=== PATIENT | female | born 1950 | race Caucasian/White ===

== ENCOUNTER → 2017-12-16 08:26 | Outpatient (CLI) | payer MEDICARE, MEDICAID | END | disposition home or self-care (01) | LOC: D.RT 11-11 08:00 → D.CT 11-11 09:00 → D.RT 11-13 09:00 → D.CT 11-13 10:00 → D.RT 12-11 13:00 → D.CT 12-11 14:00 → D.RT 08:26 | DX: R91.8 Other nonspecific abnormal finding of lung field (principal) ==

== ENCOUNTER 2018-01-27 13:13 | Emergency (ER) | payer MEDICARE, MEDICAID ==
[~2018-01-27] VITALS: Ht 165.1 cm; Wt 88.6 kg
[2018-01-27 13:15] VITALS: Ht 165.1 cm; Wt 88.6 kg
[2018-01-27 15:16] LABS: BASOPHILS 0.3 % (0-2); HEMATOCRIT 40.6 % (36.0-48.0); HEMOGLOBIN 13.3 g/dL (12-16); IMMATURE GRANULOCYTES 0.3 % (0-5); LYMPHOCYTES 27.6 % (15-50); MCH 29.3 pg (26.0-34.0); MCHC 32.8 g/dL (31.0-37.0); MCV 89.4 fL (80.0-100.0); MEAN PLATELET VOLUME 9.9 fL (7.4-10.4); MONOCYTES 8.5 % (2-11); NEUTROPHILS 60.3 % (40-80); PLATELET COUNT 182 10x3/uL (130-400); RBC 4.54 10x6/uL (4.00-5.40); RDW 14.5 % (11.5-14.5); WBC 7.9 10x3/uL (4.8-10.8)
[2018-01-27 15:23] LABS: APPEARANCE CLEAR (CLEAR); BILIRUBIN NEGATIVE (NEGATIVE); COLOR YELLOW (YELLOW); GLUCOSE NEGATIVE (NEGATIVE); KETONE NEGATIVE (NEGATIVE); NITRITE NEGATIVE (NEGATIVE); PROTEIN NEGATIVE (NEGATIVE); UROBILINOGEN NORMAL (NORMAL)
[2018-01-27 15:24] LABS: EPITHELIAL CELLS 0-5 /hpf (0-5); RED CELLS - URINE 0-5 /hpf (0-5)
[2018-01-27 15:25] LABS: BACTERIA FEW /hpf (NONE SEEN)
[2018-01-27 15:39] LABS: ALBUMIN 3.5 g/dL (3.4-5.0); ALKALINE PHOSPHATASE 126 U/L (46-116); ALT (SGPT) 28 U/L (10-68); BILIRUBIN - TOTAL 0.43 mg/dL (0.2-1.3); CALC OSMOLALITY 278 mosm/kg (275-300); CARBON DIOXIDE 26.9 mmol/L (21.0-32.0); CHLORIDE - SERUM 105 mmol/L (98-107); GLUCOSE 103 mg/dL (74-106); PROTEIN - SERUM 7.4 g/dL (6.4-8.2); SODIUM 139 mmol/L (136-145); UREA NITROGEN 14 mg/dL (7-18); eGFR NON AFRICAN AMERICAN 59 mL/min (90-120)
[2018-01-27 15:48] LABS: CREATINE KINASE 64 UL (21-215)
[2018-01-27 15:49] LABS: TROPONIN-I < 0.017 ng/mL (0.000-0.060)
[2018-01-27] MEDS ORDERED: MACROBID100 MG PO (19:11)
[2018-01-27] MEDS ORDERED: ANTIVERT12.5 MG PO (19:11)
[2018-01-27 20:57] VITALS: BP 141/83
== END 2018-01-27 19:57 | disposition home or self-care (01) ==
LOC: D.ER 13:13
PROVIDERS: Family Medicine
DX: R42 Dizziness and giddiness (principal); N39.0 Urinary tract infection, site not specified; R51 Headache; Z86.73 Personal history of transient ischemic attack (TIA), and cerebral infarction without residual deficits; E07.9 Disorder of thyroid, unspecified; E11.9 Type 2 diabetes mellitus without complications; I10 Essential (primary) hypertension; Z85.42 Personal history of malignant neoplasm of other parts of uterus

== ENCOUNTER → 2018-06-23 07:54 | Outpatient (CLI) | payer MEDICARE ==
[2018-01-27 13:15] VITALS: BMI 32.5
[~2018-06-23 07:54] MED LIST: ANTIVERT12.5 MG PO; MACROBID100 MG PO
== END | disposition home or self-care (01) ==
LOC: D.MAMMO 07:54
DX: Z12.31 Encounter for screening mammogram for malignant neoplasm of breast (principal)

== ENCOUNTER → 2018-06-25 11:02 | Outpatient (CLI) | payer MEDICARE ==
[2018-01-27 13:15] VITALS: BMI 32.5
== END | disposition home or self-care (01) ==
LOC: D.LABREF 11:02
DX: J44.9 Chronic obstructive pulmonary disease, unspecified (principal)

== ENCOUNTER 2018-12-31 11:37 | Outpatient (CLI) | payer MEDICARE ==
[~2018-12-31] VITALS: Ht 165.1 cm; Wt 94.1 kg
--- NOTE | ~2018-12-31 | OP ---
PATIENT NAME: NATALIE VASQUEZ MEDICAL RECORD: [id number] :52 LOCATION:D.CAT ADMISSION DATE: SURGEON: RENETTA MCLEAN MD DATE OF OPERATION: 12/31/2018 PROCEDURE: Left heart catheterization, selective coronary angiography, right femoral artery approach. CATHETERS: A 5-Niuean sheath, 5/4 left and right Tee, 5/4 pig. The procedure was well tolerated. The patient returned to the lombardo, sheath removed. ExoSeal device placed. FINDINGS: Left ventriculography in 30-degree BRADEN view: Normal wall motion and normal systolic function. CORONARY ANATOMY: LEFT MAIN: Left main is free of disease. LAD: Free of disease in the diagonal system. CIRCUMFLEX: Free of disease in the marginal system. RIGHT CORONARY ARTERY: Dominant artery, gives rise to PDA, free of disease. IMPRESSION: Normal LV systolic function. Normal coronary anatomy. 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
--- NOTE | ~2018-12-31 | HEMODYNAMI ---
PATIENT:NATALIE VASQUEZ MEDICAL RECORD: [id number] : 52 LOCATION:DREA ADMISSION DATE: 12/31/18 Generatedon:12/31/201813:31 Patient name: NATALIE VASQUEZ Patient #: [id number] SSN: : 1950 Date of study: 12/31/2018 Page: Of Hemodynamic Procedure Report Patient Data Patient Demographics Procedure consent was obtained First Name: NATALIE Gender: Female Last Name: PEDRO : 1950 [facility] Initial: ROSALES Age: 68 year(s) Patient #: [id number] Race: Unknown Additional ID: [id number] Contact details [address]: [address] [place] [address] [place] [place] [facility] Zip code: [address] Past Medical History Allergies Allergen Reaction Date Comments Reported Other allergy 12/31/2018 IODINE, PCN, SULFA Admission Admission Data Admission Date: 12/31/2018 Admission Time: 11:37 Height (in.): 65.5 BSA: 2.01 (m2) Height (cm.): 166.37 BMI: 33.59 (kg/m2) Weight (lbs.): 205 Weight (kg.): 92.99 Lab Results Lab Result Date: 12/31/2018 Lab Result Time: 0:00 Biochemistry Name Units Result Min Max BUN mg/dl 19 --(----)*- 7 18 Creatinine mg/dl 1.2 --(---*)-- 0.6 1.3 CBC Name Units Result Min Max Hematocrit % 41.1 -*(----)-- 42 54 Hemoglobin g/dl 14.1 --(*---)-- 13.5 17.5 Procedure Procedure Types Cath Procedure Diagnostic Procedure [facility] w/Coronaries Procedure Description Procedure Date Procedure Date: 12/31/2018 Procedure Start Time: 13:18 Procedure End Time: 13:25 Procedure Staff Name Function Tom Donato RN Field 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 Machine Operator Jaleel Barksdale MD Performing Physician Jaclyn Marino RT Scrub Connie Suárez RN Nurse Lindsey Silverio RT Monitor Procedure Data Cath Procedure Fluoroscopy Diagnostic fluoroscopy Total fluoroscopy Time: 0.8 time: 0.8 min min Diagnostic fluoroscopy Total fluoroscopy dose: 435 dose: 435 mGy mGy Contrast Material Contrast Material Type Amount (ml) Isovue 300 43 Entry Location Entry Primary Successful Side Size Upsize Upsize Entry Closure Succes sful Closure Location (Fr) 1 (Fr) 2 (Fr) Remarks Device Remarks Femoral Right 5 Fr Exoseal artery Estimated blood loss: 5 ml Diagnostic catheters Device Type Used For End Catheter Placement MULTIPACK JL 4.0 5Fr Left Coronary catheter Angiography MULTIPACK 3DRC 5Fr Right Coronary catheter Angiography MULTIPACK Pigtail 5 Fr LV Angiography catheter Procedure Complications No complications Procedure Medications Medication Administration Route Dosage 0.9% NaCl I.V. 100 ml/hr Oxygen etCO2 Nasal cannula 2 l/min Lidocaine 2% added to field 20 Heparin Flush Bag added to field 2 bags (1000units/500ml NS) Versed I.V. 2 mg Fentanyl I.V. 50 mcg Versed I.V. 2 mg Fentanyl I.V. 50 mcg Hemodynamics Rest BSA: 2.01 (m2) HGB: 14.1 (g/dl) O2 Consumption: Estimated: 193.57 (ml/min) O2 Co nsumption indexed: Estimated:96.3 (ml/min/m) Heart Rate: 79 (bpm) Pressure Samples Time Site Value (mmHg) Purpose Heart Use Rate(bpm) 13:22 LV 140/8,14 Snapshot 76 13:23 LV 143/18,24 Pullback 76 13:23 AO 139/71(97) Pullback 76 Gradients Valve Time Site 1 Site 2 Mean SEP/DFP Peak To Heart Use (mmHg) (sec/min) Peak Rate (mmHg) (bpm) Aortic 13:23 LV AO 3 21 4 76 143/18,24 139/71(97) Calculations Valve P-P Mean Valve Index Valve Source Name Gradient Area Flow (cm2) Aortic 4 3 4 3 Snapshots Pre Cath Intra NCS Post Cath Vital Signs Time Heart Resp SPO2 etCO2 NIBP (mmHg) Rhythm Pain Sedation Rate (ipm) (%) (mmHg) Status Level (bpm) 12:57:51 78 17 96 23.2 145/73(105) NSR 0 (11) 10(A) , No pain 13:02:21 73 11 97 27.7 133/70(102) NSR 0 (11) 10(A) , No pain 13:06:49 80 17 98 35.2 139/64(101) NSR 0 (11) 10(A) , No pain 13:11:14 75 10 97 21.7 146/69(97) NSR 0 (11) 10(A) , No pain 13:15:38 71 10 97 24.7 130/68(110) NSR 0 (11) 10(A) , No pain 13:20:02 78 16 97 29.2 143/73(101) NSR 0 (11) 10(A) , No pain 13:24:24 82 14 97 20.9 140/75(103) NSR 0 (11) 10(A) , No pain Medications Time Medication Route Dose Verified Delivered Reason Notes Eff ectiveness by by 12:56:40 0.9% NaCl I.V. 100 Jaleel Connie used for ml/hr Apolonia Jose Armando procedure MD SCHMIDT 12:56:48 Oxygen etCO2 2 Jaleel Connie used for Nasal l/min Apolonia Jose Armando procedure cannula MD SCHMIDT 12:56:54 Lidocaine 2% added 20ml Jaleel Jaleel for local to vial [facility] John anesthetic field MD PAULINO 12:56:59 Heparin Flush added 2 Jaleel Jaleel used for Bag to bags [facility] procedure (1000units/500ml field MD PAULINO NS) 13:17:54 Versed I.V. 2 mg Jaleel Connie for Apolonia Jose Armando sedation MD SCHMIDT 13:18:01 Fentanyl I.V. 50 Jaleel Connie for mcg ApoloniaRoyer Suárez sedation MD SCHMIDT 13:20:49 Versed I.V. 2 mg Jaleel Connie for Apolonia Jose Armando sedation MD SCHMIDT 13:20:53 Fentanyl I.V. 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 12:40:32 Diagnostic Cath status Elective 12:40:34 Time tracking: Regular hours (M-F 7:00 - 5:00) 12:40:34 Tom Donato RN sent for patient. Start room use. 12:40:38 Plan of Care:Hemodynamics will remain stable., Cardiac rhythm will remain stable., Comfort level will be maintained., Respiratory function will remain adequate., Patient/ family verbilizes understanding of procedure., Procedure tolerated without complication., Recovers from procedure without complications.. 12:42:07 H&P Date Dictated: 12/18/2018 Within 30 days and on chart., H&P Addendum completed by physician on day of procedure. (MUST COMPLETE FOR ALL OUTPATIENTS). 12:42:24 Patient allergic to Other allergyIODINE, PCN, SULFA 12:42:33 Patient Height : 65.5 inches 12:42:37 Patient Weight : 205 lbs 12:46:21 Lab Result : Hemoglobin 14.1 g/dl 12:46:21 Lab Result : Hematocrit 41.1 % 12:46:21 Lab Result : BUN 19 mg/dl 12:46:21 Lab Result : Creatinine 1.2 mg/dl 12:49:11 ----Pre-sedation anethsthesia assessment.---- 12:49:19 Previous problem with sedation/anesthesia? No ? 12:49:23 Snore? Yes 12:49:25 Sleep apnea? Yes 12:49:27 Deviated septum? No 12:49:30 Opens mouth fully? Yes 12:49:35 Sticks out tongue? Yes 12:49:39 Airway obstruction? No ? 12:49:47 Dentures? No ? 12:50:06 Patient diabetic? Yes. 12:50:40 If diabetic: On Metformin? No 12:50:48 Patient not . Patient is over age 55. 12:56:27 Vital chart was started 12:56:40 0.9% NaCl 100 ml/hr I.V. was administered by Connie Suárez RN; used for procedure; 12:56:48 Oxygen 2 l/min etCO2 Nasal cannula was administered by Connie Suárez RN; used for procedure; 12:56:54 Lidocaine 2% 20ml vial added to field was administered by Jaleel Barksdale MD; for local anesthetic; 12:56:59 Heparin Flush Bag (1000units/500ml NS) 2 bags added to field was administered by Jaleel Barksdale MD; used for procedure; 12:57:29 Patient received from Pre/Post Procedure Room to [facility] 1 Alert and oriented. Tansferred to table in Supine position. 12:57:36 Warm blankets applied, and kari hugger turned on for patient comfort. 12:57:38 Correct patient and procedure confirmed by team. 12:57:39 ECG and BP/O2 sat monitors applied to patient. 12:57:51 Baseline sample Acquired. 12:59:24 Rhythm: sinus rhythm 12:59:26 Full Disclosure recording started 12:59:33 Pre-procedure instructions explained to patient. 12:59:34 Pre-op teaching completed and patient verbalized understanding. 12:59:35 Family in waiting room. 12:59:37 Patient NPO since Midnight. 12:59:43 Was the patient premedicated? Yes 12:59:56 Is patient on blood thinner?No 13:00:02 Pre procedure: right dorsailis pedis pulse 2+ Normal; easily identifiable; not easily obliterated 13:00:04 Pre procedure: left dorsailis pedis pulse 2+ Normal; easily identifiable; not easily obliterated 13:00:05 Patient pain scale 0/10 ?. 13:00:11 IV patent on arrival in left forearm with 0.9% NaCl at O. 13:00:15 Lab results completed and on chart. 13:00:19 Right groin area was prepped with chlora-prep and draped in sterile fashion 13:00:21 Sharps counted by scrub and verified by R.N. 13:00:21 Alarms reviewed by R. N. 13:17:26 Physician arrived 13:17:27 Final Timeout: patient, procedure, and site verified with staff and physician. All members of the team are in agreement. 13:17:27 --------ALL STOP TIME OUT------ 13:17:30 Right groin site verified by team. 13:17:33 Maximum allowable Isovue 300 dose 300ml. Physician notified. (300ml for normal creatinines. For patients with creatinine of 1.7 or higher multiply weight(kg) x 5 divided by creatinine.) 13:17:37 Fire Safety Assessment: A--An alcohol-based skin anteseptic being used preoperatively., C--Open oxygen or nitrous oxide is being used., D--An ESU, laser, or fiber-optic light is being used. 13:17:43 Sedation plan: IV Moderate Sedation Medication:Versed, Fentanyl 13:17:46 Use device set Femoral Dx 13:17:47 ACIST Syringe (01288) opened to sterile field. 13:17:48 Medline Cath Pack ([id number]) opened to sterile field. 13:17:48 Bag Decanter (2002) opened to sterile field. 13:17:49 DIAGNOSTIC WIRE .035 260cm J wire (329436) opened to sterile field. 13:17:50 ACIST Manifold (65536) opened to sterile field. 13:17:50 ACIST Hand Control (89792) opened to sterile field. 13:17:51 Tegaderm 4 x 4 (1626W) opened to sterile field. 13:17:51 DIAGNOSTIC Multipack 5Fr catheter set (BY5849) opened to sterile field. 13:17:52 SHEATH 5FR [place] (IUU676) opened to sterile field. 13:17:54 Versed 2 mg I.V. was administered by Connie Suárez RN; for sedation; 13:17:57 Procedure started. 13:18:01 Local anesthetic to right femoral artery with Lidocaine 2% by Jaleel Barksdale MD.INITIAL ACCESS ONLY 13:18:01 Fentanyl 50 mcg I.V. was administered by Connie Suárez RN; for sedation; 13:18:14 A 5 Fr sheath was inserted into the Right Femoral artery 13:19:08 A MULTIPACK JL 4.0 5Fr catheter was advanced over the wire and used for Left Coronary Angiography. 13:19:41 LCA angiography performed. 13:19:45 Injector settings: Ml/sec: 3, Volume: 6, 13:20:28 Catheter removed. 13:20:35 A MULTIPACK 3DRC 5Fr catheter was advanced over the wire and used for Right Coronary Angiography. 13:20:49 Versed 2 mg I.V. was administered by Connie Suárez RN; for sedation; 13:20:53 Fentanyl 50 mcg I.V. was administered by Connie Suárez RN; for sedation; 13:21:31 RCA angiography performed. 13:21:34 Injector settings: Ml/sec: 3, Volume: 6, 13:21:37 Catheter removed. 13:21:44 A MULTIPACK Pigtail 5 Fr catheter was advanced over the wire and used for LV Angiography. 13:22:47 LV hemodynamics recorded. 13:22:48 LV gram done using BRADEN 13:22:50 Injector settings: Ml/sec: 5, Volume: 15, 13:23:06 EF : 55 % 13:23:09 Catheter removed. 13:23:11 EXOSEAL 5Fr (EX500) opened to sterile field. 13:23:20 Sheath removed intact; hemostasis achieved with Exoseal to the Right Femoral artery. 13:23:22 Procedure ended.(Physican Out) 13:23:32 Fluoroscopy time 00.80 minutes. 13:23:36 Fluoroscopy dose: 435 mGy 13:23:36 Flurop Dose total: 435 13:23:40 Contrast amount:Isovue 300 43ml. 13:23:42 Sharps counted by scrub and verified by R.N. 13:23:43 Insertion/operative site no bleeding no hematoma. 13:23:56 Post-op/insertion site Right Femoral artery dressed using a 4 x 4 and Tegaderm. 13:23:59 Post procedure rhythm: unchanged. 13:24:02 Estimated blood loss: 5 ml 13:24:04 Post procedure instruction explained to patient.Patient verbalizes understanding. 13:24:06 Patient needs reinforcement of post procedure teaching. 13:24:13 Procedure and supply charges have been captured, reviewed, submitted and are correct. 13:24:18 Procedure Complication : No complications 13:25:03 Vital chart was stopped 13:25:04 See physician's report for complete and final results. 13:25:11 Report given to Pre/Post Procedure Room. 13:25:16 Patient transfered to Pre/Post Procedure Room with Stretcher. 13:25:18 Full Disclosure recording stopped 13:25:18 Procedure ended. 13:25:29 End room use (Document Last) Device Usage Item Name Manufacture Quantity Catalog Hospital Part Current Minimal L ot# / Number Charge Number Stock Stock Serial# Code ACIST Acist 1 66666 [id number] 703799 554686 20 Syringe Medical (04024) Systems Inc Bag Microtek 1 2001S [id number] 85915 486398 5 Decanter Medical Inc. () Medline Medline 1 [id number] 616147 11738 267410 5 Cath Pack ([id number]) DIAGNOSTIC St Ty 1 435447 576683 233290 138480 30 WIRE .035 260cm J wire (548275) ACIST Hand Acist 1 68514 327211 824840 641004 5 Control Medical (14213) Systems Inc ACIST Acist 1 23859 923174 257536 135934 5 Manifold Medical (78372) Systems Inc DIAGNOSTIC Cardinal 1 YC1305 010115 55143 041214 30 Multipack Health 5Fr catheter set (FM1767) Tegaderm 4 3M 1 1626W 055490 366949 870711 5 x 4 (1626W) SHEATH 5FR Terumo 1 [id number] 539577 959656 333272 5 [place] (DIT249) MULTIPACK Cardinal 1 148875 5 JL 4.0 5Fr Health catheter MULTIPACK Cardinal 1 048272 5 3DRC 5Fr Health catheter MULTIPACK Cardinal 1 706563 5 Pigtail 5 Health Fr catheter EXOSEAL 5Fr Cardinal 1 EX500 209686 131392 126871 10 (EX500) Health Signature Audit [place] Stage Time Signature Unsigned Intra-Procedure 12/31/2018 Lindsey Silverio 1:30:57 PM RT(R) Signatures Monitor : Lindsey Silverio RT Signature : Date : Time : [facility] [address] [place] [id number]
[2018-12-31] MEDS ORDERED: LEVOTHYROXINE50 MCG PO (11:54)
[2018-12-31] MEDS ORDERED: CALAN SR240 MG PO (11:54)
[2018-12-31] MEDS ORDERED: NEXIUM40 MG PO (11:54)
[2018-12-31] MEDS ORDERED: SINGULAIR10 MG PO (11:55)
[2018-12-31] MEDS ORDERED: ACCUPRIL5 MG PO (11:55)
[2018-12-31] MEDS ORDERED: PREDNISONE20 MG PO (11:55)
[2018-12-31 12:03] VITALS: BP 151/75; Ht 165.1 cm; Wt 94.1 kg
[2018-12-31 12:20] LABS: BASOPHILS 0.1 % (0-2); EOSINOPHILS 0 % (0-7); HEMATOCRIT 41.1 % (36.0-48.0); HEMOGLOBIN 14.1 g/dL (12-16); IMMATURE GRANULOCYTES 0.5 % (0-5); LYMPHOCYTES 12.1 % (15-50); MCH 30.5 pg (26.0-34.0); MCHC 34.3 g/dL (31.0-37.0); MONOCYTES 1.7 % (2-11); NEUTROPHILS 85.6 % (40-80); RBC 4.62 10x6/uL (4.00-5.40); WBC 13.7 10x3/uL (4.8-10.8)
[2018-12-31 12:29] LABS: PLATELET COUNT 245 10x3/uL (130-400)
[2018-12-31 12:33] LABS: ANION GAP 16.6 mmol/L (8-16); CALCIUM 9.8 mg/dL (8.5-10.1); CARBON DIOXIDE 20.5 mmol/L (21.0-32.0); CREATININE - SERUM 1.2 mg/dL (0.6-1.3); POTASSIUM - SERUM 4.1 mmol/L (3.5-5.1)
--- NOTE | 2018-12-31 13:40 | NUR ---
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 PATIENT CONNECTED TO MONITOR FOR OBSERVATION WITH HR 75 BP 131/65 CHEST PAIN IS DENIED. INSTRUCTED PATIENT TO KEEP HEAD FLAT ON AILIN WITH RLE STRAIGHT
--- NOTE | 2018-12-31 13:50 | NUR ---
PATIENT AWAKE, VSS ON 2L NC. RIGHT GROIN DRESSING IS CDI, NO S/S OF BLEEDING OR HEMATOMA. NO C/O PAIN, NUMBNESS, OR TINGLING. FAMILY PRESENT AT BEDSIDE. WILL CONTINUE TO MONITOR.
--- NOTE | 2018-12-31 14:20 | NUR ---
PATIENT RESTING, VSS ON 1L NC. RIGHT GROIN DRESSING IS CDI, NO S/S OF BLEEDING OR HEMATOMA. NO C/O PAIN, NUMBNESS, OR TINGLING. FAMILY PRESENT AT BEDSIDE.
--- NOTE | 2018-12-31 14:50 | NUR ---
HEAD OF BED AT 45 DEGREES. PATIENT GIVEN TURKEY SANDWICH. VSS ON ROOM AIR. RIGHT GROIN DRESSING IS CDI, NO S/S OF BLEEDING OR HEMATOMA. NO C/O PAIN.
--- NOTE | 2018-12-31 15:15 | NUR ---
VSS ON ROOM AIR. IV REMOVED. EDUCATION REGARDING DISCHARGE INSTRUCTIONS GIVEN TO PATIENT AND FAMILY MEMBERS, BOTH VOICE UNDERSTANDING. RIGHT GROIN DRESSING IS CDI, NO S/S OF BLEEDING OR HEMATOMA. HEAD OF BED AT 90 DEGREES.
--- NOTE | 2018-12-31 15:30 | NUR ---
PATIENT VOIDED WITHOUT DIFFICULTY. PATIENT TRANSPORTED VIA WHEELCHAIR TO CAR WITH FAMILY DRIVING, ALL BELONGINGS WITH PATIENT.
== END 2018-12-31 15:30 ==
LOC: D.CATH 11:37
PROVIDERS: ATTEND Internal Medicine Interventional Cardiology
DX: I20.9 Angina pectoris, unspecified (principal); Z01.812 Encounter for preprocedural laboratory examination

== ENCOUNTER → 2019-02-22 12:08 | Outpatient (CLI) | payer MEDICARE ==
[2018-12-31 12:03] VITALS: BMI 34.5
[~2019-02-22 12:08] MED LIST changes: +ACCUPRIL5 MG PO; +CALAN SR240 MG PO; +LEVOTHYROXINE50 MCG PO; +NEXIUM40 MG PO; +PREDNISONE20 MG PO; +SINGULAIR10 MG PO
== END | disposition home or self-care (01) ==
LOC: D.CT 12:08
PROVIDERS: ATTEND Internal Medicine Pulmonary Disease
DX: R91.8 Other nonspecific abnormal finding of lung field (principal)

== ENCOUNTER → 2019-05-10 12:24 | Outpatient (CLI) | payer MEDICARE ==
[2018-12-31 12:03] VITALS: BMI 34.5
== END | disposition home or self-care (01) ==
LOC: D.CT 12:24
PROVIDERS: ATTEND Internal Medicine Pulmonary Disease
DX: R91.8 Other nonspecific abnormal finding of lung field (principal)

== ENCOUNTER → 2019-10-25 12:28 | Outpatient (CLI) | payer MEDICARE ==
[2018-12-31 12:03] VITALS: BMI 34.5
== END | disposition home or self-care (01) ==
LOC: D.CT 12:28
PROVIDERS: ATTEND Internal Medicine Pulmonary Disease
DX: R91.8 Other nonspecific abnormal finding of lung field (principal)

== ENCOUNTER → 2020-05-11 11:00 | Outpatient (CLI) | payer MEDICARE ==
[2018-12-31 12:03] VITALS: BMI 34.5
== END | disposition home or self-care (01) ==
LOC: D.CT 05-01 13:00
PROVIDERS: ATTEND Internal Medicine Pulmonary Disease
DX: R91.1 Solitary pulmonary nodule (principal)